=== PATIENT | female | born 1965 | race Caucasian/White ===

== ENCOUNTER → 2020-06-09 18:38 | Outpatient (CLI) | payer MEDICARE, SELFPAY ==
--- NOTE | 2020-06-09 18:44 | US_ITS ---
STUDY: RENAL ULTRASOUND - COMPLETE REASON FOR EXAM: Female, 55 years old. UTIS TECHNIQUE: Ultrasound evaluation of the kidneys was performed with real-time and static dowd-scale imaging. COMPARISON: None. FINDINGS: RIGHT KIDNEY: Normal location of the right kidney, which is normal in size. The right kidney measures 11.3 cm. There is a normal cortex of the right kidney. The renal cortex measures 1.4 cm. There is 2.4 cm cyst. There are no right renal calculi. There is no right hydronephrosis. DISTAL RIGHT URETER: There is non-visualization of the distal right ureter. There is no demonstrated right ureterovesical junction calculus. There is a visualized right ureteral jet. LEFT KIDNEY: Normal location of the left kidney, which is normal in size. The left kidney measures 10.4 cm. There is a normal cortex of the left kidney. The renal cortex measures 1.4 cm. There is no left renal mass or cyst. There are no left renal calculi. There is no left hydronephrosis. DISTAL LEFT URETER: There is non-visualization of the distal left ureter. There is no demonstrated left ureterovesical junction calculus. There is a visualized left ureteral jet. BLADDER: The distended urinary bladder has a volume of 260 ml. The empty urinary bladder has a volume of 1 ml. There is a normal wall thickness of the distended urinary bladder. There is no demonstrated mass within the urinary bladder. There are no demonstrated bladder calculi. US/Kidney and Bladder IMPRESSION: No hydronephrosis. Right renal cyst. Electronically Signed: Simba David MD at 23:27 EDT , Service support ,
== END ==
PROVIDERS: Referring Provider Urology; Visit Provider Urology
DX: N39.0 Urinary tract infection, site not specified (principal)
CPT/HCPCS: 76770

== ENCOUNTER 2020-07-21 08:04 | Day surgery (SDC) | payer MEDICARE, SELFPAY ==
--- NOTE | 2020-07-13 09:39 | EKG12_ITS ---
Test Reason : PRE OP Blood Pressure : / mmHG Vent. Rate : 060 BPM Atrial Rate : 060 BPM P-R Int : 186 ms QRS Dur : 090 ms QT Int : 390 ms P-R-T Axes : 076 054 -14 degrees QTc Int : 390 ms Normal sinus rhythm Nonspecific ST and T wave abnormality Abnormal ECG Confirmed by SHAYLA VILA, ADAM ([id number]), assignment editor CHRISTIANE GREGORY ([id number]) on 07/15/2020 11:34:40 AM Referred By: Zaria Gordillo Confirmed By:ADAM MCGUIRE MD
[2020-07-13 10:25] LABS: Hematocrit 46.6 % (37-47); Hemoglobin 15.2 g/dL (12.0-15.0); Mean Corp Hgb Conc 32.6 g/dL (32-36); Mean Corpuscular Hgb 29.5 pg (27.0-32.0); Mean Corpuscular Volume 90.5 fL (81-99); Mean Platelet Vol. 8.9 fl (6.2-12.0); Platelet Count 383 K/mm3 (150-450); RBC Distribution Width CV 13.5 % (11.6-14.6); RBC Distribution Width SD 45.2 fl (35.1-43.9); Red Blood Count 5.15 M/mm3 (4.2-5.4); White Blood Count 10.6 K/mm3 (4.4-11.0)
[2020-07-13 11:05] LABS: Thyroid Stim Hormone (TSH) 0.17 uIU/mL (0.358-3.74)
[2020-07-21 08:34] VITALS: BP 157/95; PULSE 53; RESP 16; TEMP 36.4; O2SAT 98; BMI 23.1
[2020-07-21] MEDS: Lactated Ringers 1,000 ML 100 ML IV (08:40)
--- NOTE | 2020-07-21 09:25 | PCM.OPRPT ---
Problem List (1) Urinary tract infection Status: Acute (2) Anogenital pruritus Status: Acute (3) Vaginal atrophy Status: Acute (4) Urethra disorder Status: Acute Report of Operation Date of Procedure: 07/21/20 Pre-Operative Diagnosis: urethral stricture, urinary tract infection, vulvar pruritis, vaginal atrophy Post-Operative Diagnosis: same Surgery/Procedure Performed:: Urethral dilation, cystoscopy, vulvar biopsy Type of Anesthesia:: General Specimen's removed: vulvar biopsy Estimated Blood Loss (mL): 5cc Description of Procedure: The patient is a 55-year-old female who is struggling with urinary tract infections and vaginal itching. She was unable to undergo cystoscopy in the office secondary to urethral stenosis. Informed consent was obtained after discussing the risk benefits and alternatives of surgical intervention. This included a discussion of COVID-19 risks. Patient was taken to the operating room and placed on the operating room table. Anesthesia monitored the head, neck, airway, IV access and vital signs throughout the case. Once anesthesia was appropriate ministered patient was placed into dorsal lithotomy position was prepped and draped in usual sterile fashion. The urethral meatus was dilated from 16 British to 30 British without difficulty. There is minimal cracking of the urethral mucosa. The cystoscope was inserted through the urethra into the urinary bladder under direct visualization. The bladder mucosa was visualized in its entirety. There were no masses, lesions, areas of erythema or concern. There were no foreign bodies identified. The patient's bladder was emptied. There is no pelvic organ prolapse identified. An area of the vulva on the patient's left side was infiltrated submucosally with 1% lidocaine with epinephrine. An elliptical biopsy was then taken and sent for evaluation. The biopsy site was closed with 3 interrupted 4-0 chromic sutures. The patient tolerated the procedure well without complication. She was awakened and taken to the recovery room in good condition. Grafts/Implants Used: none - Complications None - Admit VTE Documentation VTE Present on Admission: Yes VTE Mechan Device Prophylaxis: SCD's VTE Pharm Prophylaxis ordered?: No Reason prophylaxis not ordered:: Treatment Not Indicated
--- NOTE | 2020-07-21 09:33 | DCINST_ITS ---
Discharge Diet: No Restrictions Discharge Activity: May not drive while taking narcotic pain medications., May Shower May resume sexual activity in: 2 weeks Call your doctor if your incision/area has: Continuous Slow Oozing, Sudden Increased Bleeding, Increased Pain/ Swelling, Increased Redness, Foul Smelling Discharge, Swelling at the incision site Call your doctor if you observe: Fever of 101 or Higher, Inability to urinate, Inability to have a bowel movement Additional Instructions: hold nitrofurantoin while taking keflex Allergies/Adverse Reactions: Allergies No Known Allergies Allergy (Verified 07/08/20 10:13) Medications to take at Discharge Acetaminophen/Butalbital/Caffe [Fioricet] 1 - 2 tab PO Q4H PRN PRN 07/08/20 Atorvastatin Calcium [Lipitor] 10 mg PO QHS 07/08/20 Budesonide/Formoterol 160/4.5 [Symbicort 160/4.5 Mcg Inhaler (SP)] 2 puff INHALATION BID 07/08/20 Diazepam [Valium] 5 mg PO PRN PRN 07/08/20 Estrogens, Conjugated [Premarin] 0.625 mg PO .TWICE WEEKLY 07/08/20 Hydroxyzine HCl 25 mg PO PRN PRN 07/08/20 Levothyroxine [Synthroid] 88 mcg PO DAILY 07/08/20 Lisinopril 20 mg PO DAILY 07/08/20 Nitrofurantoin Monohyd/M-Cryst [Macrobid 100 mg Capsule] 100 mg PO DAILY 07/08/20 Propranolol HCl [Propranolol HCl ER] 80 mg PO DAILY 07/08/20 Cephalexin [Keflex] 500 mg PO Q12 3 Days #6 cap 07/21/20 Oxycodone HCl/Acetaminophen [Percocet 5/325] 2 tablet PO Q8H PRN PRN 7 Days #20 tablet 07/21/20 The following prescriptions were given: Cephalexin [Keflex] 500 mg PO Q12 3 Days #6 cap Transmission Status: Pending to [facility] Oxycodone HCl/Acetaminophen [Percocet 5/325] 2 tablet PO Q8H PRN PRN 7 Days #20 tablet PRN Reason: Pain Transmission Status: Sent to [facility] Primary Care Physician: Alisha Walter DO [Primary Care Provider] - Test Results: Test results from this visit will be discussed in further detail at your follow- up appointment, if applicable. Please Follow Up With: Zaria Gordillo MD When: call for appt to be seen in 1 week Proposed Discharge Date: 07/21/20
[2020-07-21] MEDS: Cefazolin 2 GM in 0.9% Normal Saline 100 ML IV (09:46)
--- NOTE | 2020-07-21 09:50 | VUL_PTH ---
PATIENT: EMILIANO PAVON LOC: [facility] [place] U#:[id number] AGE/SX: 55/F ROOM: RE07/21/[address]: Dr. Zaria Gordillo MD : [id number] BED: DIS: 07/21/2020 SPEC #: [id number] RECD: 07/21/20 10:51 STATUS: JUAN MONCHO #: [id number] OSCAR: 07/21/20 09:[address]: Zaria Gordillo DEPT: SURGICAL PATHOLOGY RECD BY: Rosa Knutson ENTERED: 07/21/20 11:21 SP TYPE: VULVA BX OTHR DR: Dr. Alisha Walter DO Tissues: Vulva, NOS Procedures: Special Stain Group I Surgery Specimen Level IV GMS Stain (control) HEADER OPERATION: Cysto, urethral dilatation, vulvar biopsy PRE-OP DIAGNOSIS: Urinary tract infection; anogenital pruritus; vaginal atrophy; urethra disorder TISSUE SUBMITTED: Vulvar biopsy MICROSCOPIC DIAGNOSIS Vulva, biopsy: Fragments of benign squamous mucosa with associated mild chronic inflammation. Negative for fungal organisms. See comment. AM:george 07/22/20 COMMENT GMS stain with matched controls was used in the evaluation of this case. Case has been reviewed in consultation with Dr. Ricks who concurs with the above diagnosis. MITCHELL:JOSE MICROSCOPIC DESCRIPTION Slides are reviewed. GROSS DESCRIPTION Received in fixative is one container labeled with the patient's name and designated vulvar biopsy. The specimen consists of a piece of ashley-pink soft tissue measuring 0.4 x 0.1 x 0.1 cm. The specimen is totally submitted in one cassette. / JOSE:george 07/21/20 TC:3 CPT: 47675, 80236
[2020-07-21] MEDS: Bacitracin 500 UNITS/GM PACKET (10:07)
[2020-07-21 10:16] VITALS: BP 114/68; BP 157/95; PULSE 67; RESP 16; TEMP 36.2; O2SAT 98
[2020-07-21 10:30] VITALS: BP 137/79; BP 157/95; PULSE 70; RESP 16; O2SAT 95
[2020-07-21 10:44] VITALS: BP 134/85; BP 157/95; PULSE 58; RESP 16; TEMP 36.4; O2SAT 97
[2020-07-21 11:25] VITALS: BP 137/80; BP 157/95; PULSE 58; RESP 18; TEMP 36.1; O2SAT 98
== END 2020-07-21 11:26 | disposition home or self-care (01) ==
LOC: SDC 08:06 → AC 08:07
PROVIDERS: Anesthesiology; PCP Family Medicine; Referring Provider Urology; Visit Provider Urology
PROC: 0TBB8ZX Excision of Bladder, Via Natural or Artificial Opening Endoscopic, Diagnostic (ICD-10-PCS; CPT 53665; principal; 2020-07-21 09:40)
DX: N35.92 Unspecified urethral stricture, female (principal); N39.0 Urinary tract infection, site not specified; N95.2 Postmenopausal atrophic vaginitis; N90.5 Atrophy of vulva; N39.3 Stress incontinence (female) (male); L29.2 Pruritus vulvae; Z11.59 Encounter for screening for other viral diseases; I10 Essential (primary) hypertension; J44.9 Chronic obstructive pulmonary disease, unspecified; E78.00 Pure hypercholesterolemia, unspecified; E05.90 Thyrotoxicosis, unspecified without thyrotoxic crisis or storm; M81.8 Other osteoporosis without current pathological fracture; F32.9 Major depressive disorder, single episode, unspecified; F41.9 Anxiety disorder, unspecified; F17.210 Nicotine dependence, cigarettes, uncomplicated; Z79.899 Other long term (current) drug therapy
CPT/HCPCS: 00940; 53665; 56605; 36415; 84443; 85027; 87635; 88305; 88312; 93005; C9803; J7120; J2405; U0003